=== PATIENT | male | born 1985 | race Caucasian/White ===

== ENCOUNTER 2018-06-08 13:06 | Emergency (ER) | payer MEDICAID ==
[~2018-06-08] VITALS: Ht 185.4 cm; Wt 75.0 kg
[~2018-06-08 13:06] MED LIST: METH-360 PO; NO HOME MEDS
[2018-06-08 13:19] VITALS: BP 112/80
[2018-06-08] MEDS ORDERED: cyclobenzaprine 10mg tablet PO ONE (13:45)
[2018-06-08] MEDS ORDERED: ketorolac trometh. 30mg/ml inj. IM ONE (13:45)
[2018-06-08] MEDS ORDERED: CYCL-1 PO (13:49)
[2018-06-08] MEDS ORDERED: IBUP-1985 PO (13:49)
== END 2018-06-08 14:13 | disposition home or self-care (01) ==
LOC: ER 13:07
DX: S39.012A Strain of muscle, fascia and tendon of lower back, initial encounter (principal); R53.1 Weakness; F15.90 Other stimulant use, unspecified, uncomplicated; F11.90 Opioid use, unspecified, uncomplicated; X50.1XXA Overexertion from prolonged static or awkward postures, initial encounter; Y93.89 Activity, other specified; Y92.89 Other specified places as the place of occurrence of the external cause; Y99.8 Other external cause status
CPT/HCPCS: 96372; 99283; J1885

== ENCOUNTER 2018-06-22 12:08 | Emergency (ER) | payer MEDICAID ==
[~2018-06-22] VITALS: Ht 185.4 cm; Wt 68.0 kg
[~2018-06-22 12:08] MED LIST changes: +CYCL-1 PO; +IBUP-1985 PO
[2018-06-22 12:18] VITALS: BP 124/65
[2018-06-22] MEDS ORDERED: METH4TAB81 PO (13:57)
== END 2018-06-22 14:14 | disposition home or self-care (01) ==
LOC: ER 12:09
DX: M51.37 Other intervertebral disc degeneration, lumbosacral region (principal); G89.29 Other chronic pain; F15.90 Other stimulant use, unspecified, uncomplicated; F11.90 Opioid use, unspecified, uncomplicated; Z79.899 Other long term (current) drug therapy
CPT/HCPCS: 72100; 99283

== ENCOUNTER 2019-04-24 19:38 | Emergency (ER) | payer MEDICAID ==
[~2019-04-24] VITALS: Ht 185.4 cm; Wt 77.3 kg
[~2019-04-24 19:38] MED LIST changes: +METH4TAB81 PO
[2019-04-24] MEDS ORDERED: ringers solution, lactated 1000ml IV soln IV ONE (20:20)
--- NOTE | 2019-04-24 20:28 | NUR ---
EKG in progress.
[2019-04-24 20:38] VITALS: BP 131/81
[2019-04-24 20:50] LABS: BASOPHILS # (AUTO) 0.1 X10'3 (0-0.2); BASOPHILS % (AUTO) 0.6 % (0-1); EOSINOPHILS # (AUTO) 0.2 X10'3 (0-0.9); EOSINOPHILS % (AUTO) 1.7 % (0-6); HEMATOCRIT 45.2 % (42.0-52.0); HEMOGLOBIN 15.9 g/dl (14.0-17.9); LYMPHOCYTES % (AUTO) 21.2 % (21-51); MEAN CORPUSCULAR HEMOGLOBIN 33.4 PG (27.0-31.0); MEAN CORPUSCULAR HGB CONC 35.1 g/dL (33.0-36.5); MEAN PLATELET VOLUME 9.2 FL (7.4-10.4); MONOCYTES # (AUTO) 0.8 X10'3 (0-0.9); MONOCYTES % (AUTO) 5.9 % (2-12); NEUTROPHILS % (AUTO) 70.6 % (42-75); PLATELET COUNT 176 X10'3 (140-440); RED BLOOD COUNT 4.76 X10'6 (4.70-6.10); RED CELL DISTRIBUTION WIDTH 12.8 % (11.5-14.5); WHITE BLOOD COUNT 14.1 X10'3 (4.5-11.0)
[2019-04-24 20:58] LABS: ANION GAP 8 (8-16); BLOOD UREA NITROGEN 14 MG/DL (7-18); BUN/CREATININE RATIO 11.3 (5.4-32.0); CALCIUM 9.7 MG/DL (8.5-10.1); CHLORIDE 104 MMOL/L (99-107); CREATININE 1.24 MG/DL (0.60-1.10); GLUCOSE 115 MG/DL (70-104); POTASSIUM 4.3 MMOL/L (3.5-5.1); SODIUM 139 MMOL/L (135-145); TOTAL CARBON DIOXIDE 26.7 MMOL/L (24-32); eGFR 68 ML/MIN
[2019-04-24 20:59] LABS: ALANINE AMINOTRANSFERASE 91 U/L (12-78); ALBUMIN 4.2 G/DL (3.4-5.0); ALBUMIN/GLOBULIN RATIO 1.1 (1.1-1.5); ALKALINE PHOSPHATASE 75 IU/L (46-116); ASPARTATE AMINO TRANSFERASE 34 U/L (10-37); BILIRUBIN,TOTAL 0.6 MG/DL (0.1-1.0); TOTAL PROTEIN 8.1 G/DL (6.4-8.2)
[2019-04-24] MEDS ORDERED: SULF1TAB49 PO (21:29)
== END 2019-04-24 21:36 | disposition home or self-care (01) ==
LOC: ER 19:39
DX: L03.116 Cellulitis of left lower limb (principal); R00.0 Tachycardia, unspecified; G89.29 Other chronic pain; F15.90 Other stimulant use, unspecified, uncomplicated; F11.90 Opioid use, unspecified, uncomplicated; Z79.899 Other long term (current) drug therapy
CPT/HCPCS: 36415; 73620; 80053; 83605; 83735; 84145; 85025; 87040; 93005; 99284; J7030; J7120

== ENCOUNTER 2019-07-08 02:54 | Emergency (ER) | payer MEDICAID ==
[~2019-07-08] VITALS: Ht 185.4 cm; Wt 75.0 kg
--- NOTE | 2019-07-08 03:45 | NUR ---
Pt plan of care updated / pt up out of bed to bathroom . rates pain 10 /10 .
[2019-07-08] MEDS ORDERED: morphine 4 MG/ML inj SYRINge IM ONE (04:00)
--- NOTE | 2019-07-08 04:26 | NUR ---
PT PLAN OF CARE UPDATED . DR CALDERON HAS BEEN NOTIFIED . DR EDWARDS AWARE PT IS STILLA -03/16 POST 4 MG MSO4
--- NOTE | 2019-07-08 04:40 | NUR ---
REMBERTO CHANGED TO LEVEL 2 DUE TO THE AMOUNT OF TIME PATIENT HAS HAD A CONSISTENT ERECTION
--- NOTE | 2019-07-08 04:41 | NUR ---
PT AWAITING UROLOGIST . DR EDWARDS TO BEDSIDE TO SEE PATIENT
[2019-07-08] MEDS ORDERED: phenylephrine inj 10 MG in NS 100ml Intracavernous IC ONE (04:45)
--- NOTE | 2019-07-08 05:00 | NUR ---
DR CALDERON AT BEDSIDE EXPLAINING PROCEDURE TO PT
--- NOTE | 2019-07-08 05:12 | NUR ---
SPRAY II PAINTER IN PLACE ALONG WITH O2 SAT AND BP MONITORING
--- NOTE | 2019-07-08 05:15 | NUR ---
PT BEDITINE PREPED AND POSITIONED FOR PROCEDURE WITH STERILE DRAPE .
[2019-07-08] MEDS ORDERED: morphine 2 MG/ML inj. syringe IV ONE (05:20)
[2019-07-08] MEDS ORDERED: LIDOcaine 1% 30ml preserv. free vial SQ STA (05:20)
--- NOTE | 2019-07-08 05:25 | NUR ---
PT MEDICATED WITH 2 MG OF MSO4 IV
--- NOTE | 2019-07-08 05:27 | NUR ---
DR CALDERON AND MICHELLE AT BEDSIDE TO ADMINISTER 1% LIDOCAINE SQ TO KNUB THE PERITIUNIM FOR TREATMENT OF PENILE ERCTILE
[2019-07-08] MEDS ORDERED: LORazepam 2 mg/ml vial IV ONE (05:40)
--- NOTE | 2019-07-08 05:40 | NUR ---
PT UNABLE TO LAY STILL MOVING AROUND , FEARFUL , YELLING MEDICATED WITH 1 MG ATIVAN IV REQUESTED BY [facility]
[2019-07-08] MEDS ORDERED: LIDOcaine 1% 30ml preserv. free vial IJ ONE (05:50)
--- NOTE | 2019-07-08 05:50 | NUR ---
ALL VSS PT TOLERATING PROCEDURE WELL; APPROPIRATLY FOR THE BODY IMAGE DISTURBANCE. DR CALDERON ADMINISTERED VAZCULEPIN AND IRRIGATED WITH NORMAL SALINE FROM 0525 TO 0550 . PT PENIS 'SOFTENED UP " BUT THEN BECAME ERECTILE SHORTLY AFTER INTIAL ADMINISTRATION, SHE REPEATED WITH SUCCESS. PT HAS A VISITOR AT BEDSIDE WHO ASSITED IN HELPING PT REMIAN STILL. PT VERBALIZED HE WAS STILL KNUB , SKATE MAKER IN PLACE AND THE PENIS DARINED APPROX 30 ML OF BLOOD FROM PROCEDURE NEEDLE.
--- NOTE | 2019-07-08 06:15 | NUR ---
PROCEDURE COMPLETE . DR CALDERON TO APPLY PRESSURE TO THE HALF WAY UP THE SHAFT OF THE PENIS WHERE THE 18 GUAGE NEEDLE WAS INSERTED FOR DRAINAGE. SITE NO LONGER BLEEDING . DR CALDERON TO DRESS PENIS WITH 1/4 JLING FOLLOWED WITH NASIM. PT VERBALIZED THAT THE DRESSING WAS NOT TOO TIGHT AND WAS COMFORTABLE. DR CALDERON EDUCATED THAT PT IS NO TO HAV E INTERCOURSE FOR 1-2 WEEKS AND THAT HIS PENSIS MIGHT BE TENDER , AND OR BRUISED AT INJECTION SITE, PT EDUCATED TO KEEP PENIS CLEAN AND TO KEEP HANDS CLEAN THEY COULD TRANSMIT INFECTION . PT VERBALIZED UNDERSTANDING . NO EXTRAS QUESTIONS ASKED. PT INSTRUCTED TO GET DRESS AND WAIT FOR HIS IV TO BE REMOVED , CONFIRM NO ADDITION DRAINAGE, OR BLEEDING, WELL DISCHARGE INSTRUCTIONS , HOW TO CARE FOR HIS PENSIS POST PROCEDURE, AND WHEN TO RETURN TO THE ER. PT VERBALIZED UNDERSTANDING
[2019-07-08 06:30] VITALS: BP 134/84
--- NOTE | 2019-07-08 06:30 | NUR ---
PT ASKED IF HE COULD STEP OUTSIDE FOR A MOMENT TO SEE HIS FRIEND . INSTRUCTED PT TO WAIT AT BEDSIDE FOR FURTHER DISCHAREG INSTRUCTIONS, AT THAT TIME PT FRIEND RETURNED TO BEDSIDE . PT STATED HE WAS THANKFUL AND WAS GETTING DRESS.
--- NOTE | 2019-07-08 06:35 | NUR ---
REPORT GIVEN TO PAMELA GUZMAN . PT ONCE AGIN REMINDED HE NEEDS TO REMAIN ON UNIT FOR FOLLOW UP AND POST PROCEDURE CARE. PT VERBALIZED UNDERSTANDING
--- NOTE | 2019-07-08 07:17 | NUR ---
pt. left after being told he need to wait 40 minutes. pt. left with iv in his arm. no evidance in the room or trash that he took it out himself. called pt. on phone number listed to have him come back so we could take it out. no answer. next of kin phone number the same as his.
--- NOTE | 2019-07-08 07:20 | NUR ---
NOTIFIED BY PAMELA GUZMAN PT NO LONGER ON UNIT, PT NOT TO BE FOUND IN THE LOBBY , WAITING ROOM, BATHROOMS, OR OUTSIDE THE FACILITY .PHONED PT AT [phone] NO ANSWER NO MESSAGE DINA Baldwin REPORTED OFF AGIN TO CHARGE SYDNI AND PAMELA GUZMAN THAT A PHONE CALL HOME WAS MADE .
--- NOTE | 2019-07-08 07:25 | NUR ---
pt left before being discharged. IV still in arm. pt called several times to ask him to return to hospital to have it removed. No answer. Police called to notify them of need for IV removal.
== END 2019-07-08 13:11 | disposition home or self-care (01) ==
LOC: ER 02:55
DX: N48.33 Priapism, drug-induced (principal); T46.7X5A Adverse effect of peripheral vasodilators, initial encounter; G89.29 Other chronic pain; F12.90 Cannabis use, unspecified, uncomplicated; Z79.899 Other long term (current) drug therapy; Y92.89 Other specified places as the place of occurrence of the external cause
CPT/HCPCS: 54235; 82800; 96372; 96374; 96375; 99284; J2001; J2060; J2270; J2370; 99283

== ENCOUNTER 2025-03-22 21:51 | Emergency (ER) | payer MEDICAID ==
[~2025-03-22] VITALS: Ht 185.4 cm; Wt 79.5 kg
[~2025-03-22 21:51] MED LIST changes: -IBUP-1985 PO; +IBUP600T52 PO
[2025-03-22 21:54] VITALS: TEMP 98
[2025-03-22 22:14] LABS: MEAN PLATELET VOLUME 9.0 FL (7.4-10.4); RED CELL DISTRIBUTION WIDTH 13.3 % (11.5-14.5)
[2025-03-22 22:30] LABS: CREATININE 0.74 MG/DL (0.60-1.10); TOTAL CARBON DIOXIDE 27.7 MMOL/L (24-32); eCRCL 152 ML/MIN; eGFR > 90 ML/MIN
--- NOTE | 2025-03-22 22:30 | Physician Documentation ---
History of Present Illness Chief Complaint: Abdominal Pain w/vomiting Stated Complaint: ABD PAIN Time Seen by MD: 21:55 Primary Medical Doctor: none HPI 40-year-old male who was recently released from incarceration has been taking Suboxone while incarcerated presents with three days of left lower quadrant abdominal pain. He says this occurred the last time that he stopped taking Suboxone. He has not been able to connect with the provider to maintain his prescription. Denies any vomiting or nausea states that his bowel movements are normal Day of Onset: Mar 22, 2025 Medication Reconciliation Allergies: Coded Allergies: No Known Allergies (Unverified , 03/22/25) Scheduled Methocarbamol (Robaxin-750), 1 TAB PO Q12H Methylprednisolone (Medrol Dosepak), 4 MG PO DAILY Scheduled PRN Cyclobenzaprine* (Cyclobenzaprine*), 1 TABLET PO Q8H PRN for muscle spasms Ibuprofen (Ibuprofen), 1 TAB PO Q8H PRN for pain Miscellaneous Medications Home Med List (No Home Medications), (Reported) Past Medical History Past Medical History: Seizures, Chronic Back Pain Past Surgical History: noncontributory Alcohol Use: Occasionally Drug Use: marijuana Lives with: Family Lives In: Home Physical Exam Vital Signs: Temperature: 98.0, Source: Axillary, Heart Rate: 58, Respiratory Rate: 17, BP: 116/79, Pulse Oximetry: 99, Weight: 79.550 Oxygen Flow Rate: 0 Physical Exam General: Alert, no apparent distress. Respiratory: Lungs clear, no respiratory distress. Cardiovascular: Regular rate and rhythm, no murmurs. Gastrointestinal: Soft,tender LLQ Neurologic: Oriented x4. Psychiatric: Normal mood and affect. Skin: Normal color, warm and dry. No edema, no ecchymosis. Progress Results/Orders Results/Orders Orders - CLARK ALMANZAR SIGNAL TECHNICIAN Urinalysis, Cult If Indicated (03/22/25 21:59) Lipase (03/22/25 21:59) CMP (03/22/25 21:59) Abdomen,Single View(Kub) (03/22/25 22:27) Completed Orders - CLARK ALMANZAR SIGNAL TECHNICIAN Cbc/Diff (03/22/25 21:59) Vital Signs 03/22/25 21:54 Temp 98.0 Pulse 58 Resp 17 B/P (MAP) 116/79 Pulse Ox 99 O2 Flow Rate 0 Laboratory Tests Test 03/22/25 22:05 White Blood Count 7.3 Red Blood Count 4.93 Hemoglobin 15.3 Hematocrit 44.8 Mean Corpuscular Volume 91.0 Mean Corpuscular Hemoglobin 31.0 Mean Corpuscular Hemoglobin Concent 34.1 Red Cell Distribution Width 13.3 Platelet Count 170 Mean Platelet Volume 9.0 Neutrophils (%) (Auto) 66.3 Lymphocytes (%) (Auto) 25.4 Monocytes (%) (Auto) 7.4 Eosinophils (%) (Auto) 0.6 Basophils (%) (Auto) 0.3 Neutrophils # (Auto) 4.8 Lymphocytes # (Auto) 1.8 Monocytes # (Auto) 0.5 Eosinophils # (Auto) 0.0 Basophils # (Auto) 0.0 CBC Comment Chemistry Comments Medical Decision Making Findings This 40-year-old male initially complained of left lower quadrant abdominal pain. I was concerned about possible diverticulitis or severe constipation or even bowel obstruction. Does not clinically correlate with his labs or vitals or his overall presentation. Based on his history of using Suboxone and being off of it for the last week I suspect is the larger reason for his complaint. I offered placing him back on Suboxone treatment . He agrees with this plan and will follow up accordingly in the outpatient setting for further prescriptions. He does not present acutely ill as I mentioned in his laboratory values are very reassuring as well as his x-ray Differential Dx:Considerations: Include: AAA, Angina/CO, Aortic dissection, Appendicitis, Bowel obstruction, Cholangitis, Cholelithasis, Constipation, Diverticular disease, Esophageal rupture, Esophagitis, Gastritis/PUD, Gastroenteritis, GI hemorrhage, Hernia, Hepatitis, Inflammatory BD, Ischemic b owel, Pancreatitis, Porphyria, Testicular torsion, Trauma, intraabdominal, Urinary obstruction, Urinary tract infection, Urolithiasis, Other Departure Disposition: 01 HOME / SELF CARE / HOMELESS Impression: Primary Impression: Opioid use disorder, moderate, dependence Condition: Stable Discharge Instructions: Opioid Use Disorder Referrals: NO PRIMARY CARE PROVIDER (PCP) Prescriptions Buprenorphine HCl/Naloxone HCl (Suboxone 12 mg-3 mg Sl Film) 12 Mg-3 Mg Film 1 STRIP SL DAILY for 14 Days, #14 STRIP 0 Refills Prov: CLARK ALMANZAR NP 03/22/25 Education Educated: Patient Educated regarding: diagnosis Signature Scribe Signature: j Attestation: Scribed for Clark Almanzar Np by Clark Rodriges NP . 03/22/25 22:30 CLARK ALMANZAR NP Mar 22, 2025 22:30
--- NOTE | 2025-03-22 22:51 | RADIOLOGY REPORT ---
Exam: DI ABDOMEN,SINGLE VIEW(KUB) Indication: constipation Comparison: None Technique: Tube radiographic views of the abdomen. Findings: Nonobstructive bowel gas pattern. No significant stool burden, with small amount of proximal stool. The lower chest is unremarkable. No acute osseous finding. Impression: 1. Nonobstructive bowel gas pattern. No significant stool.
[2025-03-22] MEDS ORDERED: BUPR1FIL7 SL (23:13)
[2025-03-22] MEDS: buprenorphine/naloxone 8MG-2MG SUBlingual film SL ONE (23:28)
[2025-03-22 23:30] VITALS: BP 104/68; PULSE 98; RESP 16; O2SAT 98
== END 2025-03-22 23:32 | disposition home or self-care (01) ==
LOC: ER 21:52
DX: F11.20 Opioid dependence, uncomplicated (principal); G89.29 Other chronic pain; F12.90 Cannabis use, unspecified, uncomplicated; Z72.89 Other problems related to lifestyle
CPT/HCPCS: 36415; 74018; 80053; 83690; 85025; 99284

== ENCOUNTER 2025-04-07 09:44 | Emergency (ER) | payer MEDICAID ==
[~2025-04-07] VITALS: Ht 185.4 cm; Wt 79.5 kg
[~2025-04-07 09:44] MED LIST changes: +BUPR1FIL7 SL
[2025-04-07 09:49] VITALS: TEMP 97.9
[2025-04-07] MEDS ORDERED: BUPR1FIL3 SL (10:09)
--- NOTE | 2025-04-07 10:09 | Physician Documentation ---
History of Present Illness ~ Chief Complaint: Narcotic Withdrawl Stated Complaint: WITHDRAWAL Time Seen by MD: 10:03 Primary Medical Doctor: none HPI Patient 40-year-old male that presents to the emergency department for a refill of Suboxone. Patient reports that he has been out of his Suboxone for approximately 5 days in his starting to withdraw. Patient reports that he has b een on Suboxone for the last 5 years he was recently per rolled and provided with a prescription but the prescription only lasted for a short time. Patient was then supposed to follow up with the primary care provider which he has done and does have an appointment. But his appointment is not until the of this month. Patient reports that he was seen here in the emergency department approximately 2 weeks ago and was provided with a prescription at that time but he takes 24 mg of Suboxone a day in the prescription only got him through until 5 days ago at that dose. She reports that he has some abdominal pain a little bit of nausea and sweats . Patient reports that this is a very consistent presentation for him for withdrawing. Patient declines any testing or imaging to evaluate his abdominal pain at this time. Education was provided to the patient regarding the abdominal pain in the need to return to the emergency department if that persists after his withdrawal symptoms have subsided. Follow up with his primary care provider on the or sooner if needed. He will return to the emergency department with any worsening of his current symptoms or any additional concerning symptoms that we discussed here today. Medication Reconciliation Allergies: Coded Allergies: No Known Allergies (Unverified , 03/22/25) Scheduled Buprenorphine HCl/Naloxone HCl (Suboxone 12 mg-3 mg Sl Film), 1 STRIP SL DAILY Methocarbamol (Robaxin-750), 1 TAB PO Q12H Methylprednisolone (Medrol Dosepak), 4 MG PO DAILY Scheduled PRN Cyclobenzaprine* (Cyclobenzaprine*), 1 TABLET PO Q8H PRN for muscle spasms Ibuprofen (Ibuprofen), 1 TAB PO Q8H PRN for pain Miscellaneous Medications Home Med List (No Home Medications), (Reported) Past Medical History Past Medical History: Seizures, Chronic Back Pain Past Surgical History: noncontributory Alcohol Use: Occasionally Drug Use: marijuana Lives with: Family Lives In: Home Review of Systems ROS As stated above in the HPI, otherwise all systems are reviewed and negative. Physical Exam Vital Signs: Temperature: 97.9, Heart Rate: 69, Respiratory Rate: 16, BP: 114/70, Pulse Oximetry: 99, Weight: 79.550 Oxygen Flow Rate: 0 Physical Exam VITALS: Reviewed and as above. GENERAL: Alert, no apparent distress. HEENT: Normocephalic, atraumatic, PERRL, EOMI, dry mucosa, no erythema RESPIRATORY: Lungs clear, normal breath sounds, no respiratory distress. CHEST: No accessory muscle use, no retractions CV: Regular rate, rhythm, no edema, no murmur, No: JVD GI: Soft, nontender with palpation, bowels sounds present, no rebound, guarding, or rigidity BACK: No CVA tenderness, or swelling MUSCULOSKELETAL No deformities, no edema SKIN: Warm and dry, no rash NEURO: Oriented x4, No motor or sensory deficit PSYCH: Normal mood and affect, no agitation Progress Results/Orders Results/Orders Vital Signs 04/07/25 09:49 Temp 97.9 Pulse 69 Resp 16 B/P (MAP) 114/70 Pulse Ox 99 O2 Flow Rate 0 Medical Decision Making Findings Patient 40-year-old male that presents to the emergency department for a refill of Suboxone. Patient reports that he has been out of his Suboxone for approximately 5 days in his starting to withdraw. Patient reports that he has been on Suboxone for the last 5 years he was recently per rolled and provided with a prescription but the prescription only lasted for a short time. Patient was then supposed to follow up with the primary care provider which he has done and does have an appointment. But his appointment is not until the of this month. Patient reports that he was seen here in the emergency department a pproximately 2 weeks ago and was provided with a prescription at that time but he takes 24 mg of Suboxone a day in the prescription only got him through until 5 days ago at that dose. She reports that he has some abdominal pain a little bit of nausea and sweats . Patient reports that this is a very consistent presentation for him for withdrawing. Patient declines any testing or imaging to evaluate his abdominal pain at this time. Education was provided to the patient regarding the abdominal pain in the need to return to the emergency department if that persists after his withdrawal symptoms have subsided. Follow up with his primary care provider on the or sooner if needed. He will return to the emergency department with any worsening of his current symptoms or any additional concerning symptoms that we discussed here today. Differential Dx:Considerations: Include: Alcohol withdrawl synd., Delerium tremens, Hallucinosis, Seizures, Anticholinergic poisoning, CVA, Dehydration, Depression, Drug induced psychosis, Electolyte imbalance, Encephalitis, Encephalopathy, Hepatitis, Hyperthermia, Intoxication-alcohol, Intoxication- other drug, Medical noncompliance, Personality disorder, Schizophrenia, Seizure disorder, Substance abuse disorder, Seizure disorder, Thiamine deficiency, Thyrotoxicosis, Other Departure Impression: Primary Impression: Narcotic drug use Additional Impressions: Opioid use disorder, moderate, dependence Medication refill Condition: Stable Discharge Instructions: Narcotic Withdrawal Additional Instructions: Patient 40-year-old male that presents to the emergency department for a refill of Suboxone. Patient reports that he has been out of his Suboxone for approximately 5 days in his starting to withdraw. Patient reports that he has been on Suboxone for the last 5 years he was recently per rolled and provided with a prescription but the prescription only lasted for a short time. Patient was then supposed to follow up with the primary care provider which he has done and does have an appointment. But his appointment is not until the of this month. Patient reports that he was seen here in the emergency department approximately 2 weeks ago and was provided with a prescription at that time but he takes 24 mg of Suboxone a day in the prescription only got him through until 5 days ago at that dose. She reports that he has some abdominal pain a little bit of nausea and sweats . Patient reports that this is a very consistent presentation for him for withdrawing. Patient declines any testing or imaging to evaluate his abdominal pain at this time. Education was provided to the patient regarding the abdominal pain in the need to return to the emergency department if that persists after his withdrawal symptoms have subsided. Follow up with his primary care provider on the or sooner if needed. He will return to the emergency department with any worsening of his current symptoms or any additional concerning symptoms that we discussed here today. Patient provided with strict instructions to return to the emergency department if he has any worsening of his abdominal pain associated nausea vomiting fever chills or any other concerning symptoms that we discussed here today. Patient will follow up with his primary care provider for guarding additional need of his Suboxone therapy. Referrals: NO PRIMARY CARE PROVIDER (PCP) Prescriptions Buprenorphine Hcl/Naloxone Hcl (Suboxone 8 Mg-2 Mg Sl Film) 8 Mg-2 Mg Film 1 EACH SL BID for 15 Days, #30 FILM Prov: NEDA GALINDO 04/07/25 Education Educated: Patient Educated regarding: diagnosis, treatment, need for follow up Signature Scribe Signature: A Attestation: Scribed for Neda Galindo by LAURA Amezcua . 04/07/25 10:11 NEDA GALINDO Apr 07, 2025 10:09
[2025-04-07 10:32] VITALS: BP 118/85; PULSE 72; RESP 18; O2SAT 98
== END 2025-04-07 10:33 | disposition home or self-care (01) ==
LOC: ER 09:44
DX: F11.23 Opioid dependence with withdrawal (principal); F12.90 Cannabis use, unspecified, uncomplicated; Z76.0 Encounter for issue of repeat prescription
CPT/HCPCS: 99283